=== PATIENT | female | born 2005 | race African-American/Black ===

== ENCOUNTER 2025-06-11 12:06 | Emergency (ER) | payer MEDICAID ==
[~2025-06-11] VITALS: Ht 162.6 cm; Wt 65.0 kg
[2025-06-11 12:13] VITALS: O2SAT 98
[2025-06-11] MEDS: SODIUM CHLORIDE 0.9% 1,000 ML IV ONE (14:00)
[2025-06-11] MEDS: FAMOTIDINE 20MG/2ML VIAL IV ONE (14:00)
[2025-06-11] MEDS: ONDANSETRON HCL 4MG/2ML INJ IV ONE (14:00)
[2025-06-11 14:03] LABS: BASOPHILS % 0.3 % (0.0-2.0); EOSINOPHILS % 0.1 % (0.0-5.0); HEMATOCRIT. 40.2 % (36.0-48.0); HEMOGLOBIN. 13.5 g/dL (12.0-16.0); LYMPHOCYTES % 14.6 % (20.0-50.0); MEAN PLATELET VOLUME 8.5 fl (7.4-10.4); MONOCYTES % 2.5 % (2.0-8.0); NEUTROPHILS % 82.5 % (40.0-76.0); PLATELET 263 x1000/uL (130-400); RED BLOOD CELL COUNT 4.08 mill/uL (4.2-5.4); RED CELL DISTRIBUTION WIDTH 16.1 % (11.6-14.6)
[2025-06-11 14:16] LABS: CREATININE 0.9 mg/dL (0.6-1.0); UREA NITROGEN BLOOD < 5 mg/dL (9-23)
[2025-06-11 14:18] LABS: ASPARTATE AMINOTRANSFERASE 89 IU/L (<34); BILIRUBIN DIRECT 0.5 mg/dL (<=3.0); BILIRUBIN TOTAL 1.6 mg/dL (0.1-1.0)
[2025-06-11 14:19] LABS: PROTEIN TOTAL 8.2 g/dL (6.0-8.3)
[2025-06-11 14:26] LABS: HCG SCREEN NEGATIVE
[2025-06-11 14:49] LABS: CLARITY URINE CLOUDY (CLEAR); COLOR URINE DARK YELLOW (YELLOW); GLUCOSE URINE NEGATIVE (NEGATIVE); KETONES URINE 1+ (NEGATIVE); LEUKOCYTE ESTERASE URINE NEGATIVE (NEGATIVE); NITRITE URINE NEGATIVE (NEGATIVE); OCCULT BLOOD URINE NEGATIVE (NEGATIVE); PH URINE 6.0 (4.5-8.0); PROTEIN URINE 1+ (NEGATIVE); SPECIFIC GRAVITY URINE 1.034 (1.005-1.030); UROBILINOGEN URINE 1.0 E.U./dL (0.2-1.0)
[2025-06-11 15:33] LABS: MUCUS URINE 2+ /lpf (< = 2+)
[2025-06-11 15:34] LABS: BACTERIA URINE 1+; RBC URINE NONE SEEN /hpf (0-2); SQUAMOUS EPITHELIAL CELL URINE FEW /lpf (RARE/1+); WBC URINE 0-2 /hpf (0-2)
[2025-06-11] MEDS: KETOROLAC 30MG/ML VIAL IV SCH (15:45)
[2025-06-11 16:25] VITALS: BP 115/75; PULSE 99; RESP 22; TEMP 36.7; O2SAT 99
[2025-06-11] MEDS ORDERED: IOHEXOL-300 100 ML BOTTLE ONE (21:18)
== END 2025-06-11 17:01 | disposition home or self-care (01) ==
LOC: ER 12:06
DX: F10.10 Alcohol abuse, uncomplicated (principal); R11.2 Nausea with vomiting, unspecified; Z87.19 Personal history of other diseases of the digestive system; Z79.899 Other long term (current) drug therapy; Y90.9 Presence of alcohol in blood, level not specified
CPT/HCPCS: 80076; 80048; 81003; 80320; 84703; 83690; 85025; 36415; 74177; 96361; 96374; 96375; 99285; Q9967; J1308; J1885; J2405; J7030; Z7610; G0480